=== PATIENT | female | born 1990 | race Caucasian/White ===

== ENCOUNTER 2021-07-09 00:48 | Emergency (ER) | payer SELFPAY ==
[2021-07-09 01:23] LABS: Urine Blood Trace-intact (Negative); Urine Glucose Negative (Negative); Urine Protein Negative (Negative); Urine pH 6.5 (5.0-7.0)
[2021-07-09] MEDS ORDERED: NA CHLORIDE 0.9% 1,000 ML ONE (01:30)
[2021-07-09 01:43] LABS: Absolute Lymphocytes (CBC) 2.5 K/uL (0.7-4.9); Hematocrit 38.2 % (36.0-45.0); Lymphocytes % 32.9 % (15.3-44.8); MPV 7.5 fL (7.6-11.3); RBC Red Blood Cell Count 4.37 M/uL (3.86-4.86)
[2021-07-09 01:54] LABS: Albumin 3.3 g/dL (3.4-5.0); Bilirubin Total 0.2 mg/dL (0.2-1.0); Potassium 3.9 mmol/L (3.5-5.1); Protein, Total 6.9 g/dL (6.4-8.2)
--- NOTE | 2021-07-09 03:17 | EDPHYS ---
Physician Documentation [facility] Margie Name: Anu Quiroz Age: 30 yrs Sex: Female : 1990 Arrival Date: 07/09/2021 Time: 00:51 Bed 5 Private MD: ED Physician Drew Austin HPI: 07/09 03:07 This 30 yrs old Female presents to ER via Ambulatory with complaints of Abdominal Pain. rn 03:07 The patient presents with abdominal pain in the lower abdomen. Onset: The rn symptoms/episode began/occurred 1 week(s) ago. The symptoms do not radiate. Associated signs and symptoms: Pertinent positives: dysuria, Pertinent negatives: blood in stools, constipation, diarrhea, fever, vaginal discharge. The symptoms are described as achy, intermittent. Modifying factors: The symptoms are alleviated by nothing, the symptoms are aggravated by nothing. Severity of pain: At its worst the pain was moderate in the emergency department the pain has improved. The patient has not experienced similar symptoms in the past. The patient has not recently seen a physician. Pt reports lower abd pain, bilateral lower quadrants for 1 week, no fever/vomiting/diarrhea. No blood in stool. Does reports increased urinary frequency and urgency. Started taking AZO. No trauma. . 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 - Family history:: not pertinent. - Hospitalizations: : No recent hospitalization is reported. ROS: 03:07 Constitutional: Negative for fever, chills, and weight loss, Eyes: Negative for injury, rn pain, redness, and discharge, Neck: Negative for injury, pain, and swelling, Cardiovascular: Negative for chest pain, palpitations, and edema, Respiratory: Negative for shortness of breath, cough, wheezing, and pleuritic chest pain, Abdomen/GI: + lower abd pain Back: Negative for injury and pain, : + dysuria and increased frequency of urination MS/Extremity: Negative for injury and deformity, Skin: Negative for injury, rash, and discoloration, Neuro: Negative for headache, weakness, numbness, tingling, and seizure. Exam: 03:07 Constitutional: This is a well developed, well nourished patient who is awake, alert, rn and in no acute distress. Head/Face: Normocephalic, atraumatic. Cardiovascular: Regular rate and rhythm Respiratory: No increased work of breathing, no retractions or nasal flaring. Abdomen/GI: soft, mild RLQ tenderness, no rebound, no masses Back: No spinal tenderness. No costovertebral tenderness. Full range of motion. Skin: Warm, dry MS/ Extremity: Pulses equal, no cyanosis. Neuro: Awake and alert, GCS 15 Vital Signs: 01:09 BP 128 / 79; Pulse 105; Resp 18; Temp 97.8(O); Pulse Ox 100% on R/A; Weight 68.04 kg lp1 (R); Height 5 ft. 3 in. (160.02 cm); Pain 5/10; 02:35 BP 121 / 78; Pulse 86; Resp 16 S; Pulse Ox 100% on R/A; Pain 5/10; al4 01:09 Body Mass Index 26.57 (68.04 kg, 160.02 cm) lp1 MDM: 00:53 Patient medically screened. rn 03:07 Differential diagnosis: appendicitis, diverticulitis, Endometriosis, non-specific abd rn pain, Ureterolithiasis, urinary tract infection, ovarian cyst. Data reviewed: vital signs, nurses notes, lab test result(s), radiologic studies, CT scan, and as a result, I will discharge patient. Counseling: I had a detailed discussion with the patient and/or guardian regarding: the historical points, exam findings, and any diagnostic results supporting the discharge/admit diagnosis, lab results, radiology results, the need for outpatient follow up, to return to the emergency department if symptoms worsen or persist or if there are any questions or concerns that arise at home. Response to treatment: the patient's symptoms have mildly improved after treatment, and as a result, I will discharge patient. Special discussion: Based on the patient's Hx, exam, and Dx evaluation, there is no indication for emergent surgery or inpatient Tx. It is understood by the patient/guardian that if the Sx's persist or worsen they need to return immediately for re-evaluation. I discussed with the patient/guardian in detail that at this point there is no indication for admission to the hospital. It is understood, however, that if the symptoms persist or worsen the patient needs to return immediately for re-evaluation. ED course: Ct without acute findings. 1+ leukocyte in urine and patient with urinary complaints, will dc home with abx and return precautions. . 07/09 01:09 Order name: CBC with Diff; Complete Time: 03:07 rn 07/09 01:09 Order name: CMP; Complete Time: 03: rn 07/09 01:09 Order name: Lipase; Complete Time: 03: rn 07/09 01:23 Order name: Urine Dipstick-Ancillary; Complete Time: 03:07 ED[facility] 07/09 01:44 Order name: Urine --Ancillary (enter results) 07/09 01:45 Order name: Urine --Ancillary; Complete Time: 03:07 EDNH 07/09 01:09 Order name: CT Abd/Pelvis - IV Contrast Only rn 07/09 01:09 Order name: IV Saline Lock; Complete Time: : rn 07/09 01:09 Order name: Labs collected and sent; Complete Time: rn 07/09 01:09 Order name: Urine Dipstick-Ancillary (obtain specimen); Complete Time: 01: rn 07/09 01:09 Order name: Urine Test (obtain specimen); Complete Time: 01:29 rn Administered Medications: 01:29 Drug: NS 0.9% 1000 ml Route: IV; Rate: 1 bolus; Site: right antecubital; ll3 03:28 Follow up: Response: No adverse reaction; IV Status: Completed infusion; IV Intake: ll3 1000ml 03:27 Drug: Cipro (ciprofloxacin) 500 mg Route: PO; ll3 03:28 Follow up: Response: Medication administered at discharge. ll3 Disposition Summary: 07/09/21 03:17 Discharge Ordered Location: Home rn Problem: new rn Symptoms: have improved rn Condition: Stable rn Diagnosis - Abdominal pain, unspecified rn - Other ovarian cysts rn - UTI/ Urinary tract infection, site not specified rn Followup: rn - With: Private Physician - When: As needed - Reason: Recheck today's complaints, Re-evaluation by your physician Discharge Instructions: - Discharge Summary Sheet rn - Abdominal Pain, Adult rn - Ovarian Cyst rn - Urinary Tract Infection, Adult rn Forms: - Medication Reconciliation Form rn - Thank You Letter rn - Antibiotic stock turner - Prescription Opioid Use rn Prescriptions: - Pyridium 200 mg Oral Tablet - take 1 tablet by ORAL route every 8 hours for 3 days; 9 tablet; Refills: 0, rn Product Selection Permitted - Cipro 500 mg Oral Tablet - take 1 tablet by ORAL route every 12 hours for 7 days; 14 tablet; Refills: 0, rn Product Selection Permitted Signatures: Dispatcher [employer] EDDrew Coffman MD MD rn Pena, Laura, RN RN lp1 Bipin Grayson RN RN ll3
--- NOTE | 2021-07-09 03:17 | ER ---
Nurse's Notes [facility] Margie Name: Anu Quiroz Age: 30 yrs Sex: Female : 1990 Arrival Date: 07/09/2021 Time: 00:51 Bed 5 Private MD: Diagnosis: Abdominal pain, unspecified;Other ovarian cysts;UTI/ Urinary tract infection, site not specified Presentation: 07/09 01:09 Chief complaint: Patient states: RLQ and LLQ abdominal pain radiating to low back that lp1 began about 1 week ago, pain has become more severe, reports urinary frequency, burning with urination, feeling on incomplete emptying; Has been taking AZO without relief. Coronavirus screen: At this time, the client does not indicate any symptoms associated with coronavirus-19. Ebola Screen: No symptoms or risks identified at this time. Initial Sepsis Screen: Does the patient meet any 2 criteria? No. Patient's initial sepsis screen is negative. Does the patient have a suspected source of infection? No. Patient's initial sepsis screen is negative. Risk Assessment: Do you want to hurt yourself or someone else? Patient reports no desire to harm self or others. Onset of symptoms was July 09, 2021. 01:09 Method Of Arrival: Ambulatory lp1 01:09 Acuity: ALLISON 3 lp1 Triage Assessment: 01:35 General: Appears uncomfortable, Behavior is calm, cooperative. Pain: Complains of pain ll3 in groin Quality of pain is described as burning, Pain began 2-3 days ago. GI: Abdomen is round non-distended, Reports lower abdominal pain. : Reports burning with urination, pain in suprapubic area urgency, urinary frequency. 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 - Family history:: not pertinent. - Hospitalizations: : No recent hospitalization is reported. Screenin:36 Abuse screen: Denies threats or abuse. Nutritional screening: No deficits noted. ll3 Tuberculosis screening: No symptoms or risk factors identified. Fall Risk No fall in past 12 months (0 pts). No secondary diagnosis (0 pts). IV access (20 points). Ambulatory Aid- None/Bed Rest/Nurse Assist (0 pts). Gait- Normal/Bed Rest/Wheelchair (0 pts) Mental Status- Oriented to own ability (0 pts). Total Wood Fall Scale indicates No Risk (0-24 pts). Assessment: 01:36 General: See triage assessment. ll3 01:37 GI: Bowel sounds present X 4 quads. Abd is soft and non tender X 4 quads. ll3 02:34 Reassessment: RN agrees with triage assessment. patient awake and alert. patient al4 playing on cell phone and in no apparent distress. patient rates pain 5/10, but states she does not want/need anything at this time. . Vital Signs: 01:09 BP 128 / 79; Pulse 105; Resp 18; Temp 97.8(O); Pulse Ox 100% on R/A; Weight 68.04 kg lp1 (R); Height 5 ft. 3 in. (160.02 cm); Pain 5/10; 02:35 BP 121 / 78; Pulse 86; Resp 16 S; Pulse Ox 100% on R/A; Pain 5/10; al4 01:09 Body Mass Index 26.57 (68.04 kg, 160.02 cm) lp1 ED Course: 00:51 Patient arrived in ED. bp1 00:53 Drew Austin MD is Attending Physician. rn 01:09 Arm band placed on. lp1 01:11 Triage completed. lp1 01:26 Inserted saline lock: 22 gauge in right antecubital area, using aseptic technique. ds4 Blood collected. 01:36 Patient has correct armband on for positive identification. Bed in low position. Call ll3 light in reach. Side rails up X 1. Adult w/ patient. 01:36 No provider procedures requiring assistance completed. ll3 02:26 CT Abd/Pelvis - IV Contrast Only In Process Unspecified. EDMS 02:29 Toni Almeida is Primary Nurse. al4 03:28 IV discontinued, intact, bleeding controlled, No redness/swelling at site. Pressure ll3 dressing applied. Administered Medications: 01:29 Drug: NS 0.9% 1000 ml Route: IV; Rate: 1 bolus; Site: right antecubital; ll3 03:28 Follow up: Response: No adverse reaction; IV Status: Completed infusion; IV Intake: ll3 1000ml 03:27 Drug: Cipro (ciprofloxacin) 500 mg Route: PO; 3 03:28 Follow up: Response: Medication administered at discharge. 3 Intake: 03:28 IV: 1000ml; Total: 1000ml. 3 Outcome: 03:17 Discharge ordered by . rn 03:28 Discharged to home ambulatory, with significant other. 3 03:28 Condition: stable 03:28 Discharge instructions given to patient, family, Instructed on discharge instructions, follow up and referral plans. medication usage, Demonstrated understanding of instructions, follow-up care, medications, Prescriptions given X 2. 03:28 Patient left the ED. 3 Signatures: Dispatcher [employer] EDMS Drew Austin MD MD rn Pena, Laura RN RN lp1 Giuseppe Lemon ds4 Ginger Yancey Lynsea RN RN ll3 Toni Almeida al4 Corrections: (The following items were deleted from the chart) 02:38 02:34 Reassessment: patient awake and alert. patient playing on cell phone and in no al4 apparent distress. patient rates pain 5/10, but states she does not want/need anything at this time. . al4
[2021-07-09] MEDS ORDERED: CIPROFLOXACIN HCL 500 MG TAB ONE (03:28)
[2021-07-09 05:50] VITALS: TEMP 97.8; O2SAT 100
[2021-07-09 05:52] VITALS: BP 121/78
--- NOTE | 2021-07-09 11:09 | RAD REPORT ---
EXAM DESCRIPTION: Abdomen Pelvis W Contrast 07/09/2021 2:42 AM CDT CLINICAL HISTORY: 30 years, Female, Abdominal pain, acute, nonlocalized COMPARISON: None TECHNIQUE: Contrast-enhanced images of the abdomen and pelvis were performed utilizing 5 mm slice th ickness at 5 mm interval reconstruction from the lung bases to the ischial tuberosities after the adm inistration of IV contrast. In addition multiplanar reformats in the coronal and sagittal plane were obtained and reviewed. This exam was performed according to our departmental dose-optimization protocol, which includes auto mated exposure control, adjustment of the mA and/or kV according to patient size and/or use of iterat alejo reconstruction technique. FINDINGS: The lung bases demonstrate to be clear. The liver, gallbladder, pancreas, spleen and adrenal glands demonstrate to be unremarkable, no focal lesions are noted. The kidneys demonstrate normal uptake of contrast media. No evidence for nephrolithiasis and/or hydro nephrosis. Grossly the unopacified stomach, small bowel and large bowel demonstrate to be within normal limits. There is no evidence for bowel dilatation/or free air. The appendix is normal. The urinary bladder demonstrate to be unremarkable. The uterus is unremarkable. There is a right ad nexal cystic structure with a rim wall enhancement measuring 1.4 x 2 1.1 cm corresponding to a corpus luteum cyst. The aorta demonstrate to be normal. There is no retroperitoneal lymphadenopathy. Th ere is no evidence for ascites/or significant abnormal fluid collections. The rest of the soft tissue and bony structures are within normal limits. IMPRESSION: No acute intra-abdominal process. 1.1 cm right adnexal corpus luteum. No follow-up imaging is recommended. Electronically signed by: Elmo Gutierrez MD 07/09/2021 2:44 AM CDT Due to temporary technical issues with the PACS/Fluency reporting system, reports are being signed by the in house radiologist without review as a courtesy to ensure prompt reporting. The interpreting r adiologist is fully responsible for the content of the report.
== END 2021-07-09 03:28 | disposition home or self-care (01) ==
LOC: ER 00:48
DX: N39.0 Urinary tract infection, site not specified (principal); N83.299 Other ovarian cyst, unspecified side
CPT/HCPCS: 36415; 74177; 80053; 81003; 81025; 83690; 85025; J7030; Q9967

== ENCOUNTER 2021-07-29 23:14 | Emergency (ER) | payer SELFPAY ==
[2021-07-30] MEDS ORDERED: NA CHLORIDE 0.9% 1,000 ML ONE (01:25)
[2021-07-30] MEDS ORDERED: PANTOPRAZOLE 40 MG INJ ONE (01:26)
[2021-07-30 01:55] LABS: Urine Blood Negative (Negative); Urine Glucose Negative (Negative); Urine Protein Negative (Negative)
[2021-07-30 02:04] LABS: Absolute Lymphocytes (CBC) 2.5 K/uL (0.7-4.9); Hematocrit 39.4 % (36.0-45.0); Lymphocytes % 35.5 % (15.3-44.8); MPV 7.8 fL (7.6-11.3); RBC Red Blood Cell Count 4.49 M/uL (3.86-4.86)
[2021-07-30 02:06] LABS: Protime INR 1.05
[2021-07-30 02:15] LABS: Albumin 3.9 g/dL (3.4-5.0); Bilirubin Total 0.3 mg/dL (0.2-1.0); Potassium 3.2 mmol/L (3.5-5.1); Protein, Total 7.8 g/dL (6.4-8.2)
--- NOTE | 2021-07-30 05:34 | EDPHYS ---
Physician Documentation [facility] Margie Name: Anu Quiroz Age: 30 yrs Sex: Female : 1990 Arrival Date: 07/29/2021 Time: 23:17 Bed 19 Private MD: ED Physician Logan Duque HPI: 07/30 00:55 This 30 yrs old Female presents to ER via Ambulatory with complaints of GI Bleeding. mh7 00:55 The patient presents to the emergency department with rectal bleeding, a moderate mh7 amount, bright red blood with bowel movement, on toilet paper, 2 times since symptom onset. 00:55 Onset: The symptoms/episode began/occurred 2 day(s) ago. mh7 00:55 Abdominal pain: none is appreciated. Modifying factors: The symptoms are alleviated by mh7 nothing, the symptoms are aggravated by nothing. Associated signs and symptoms: Pertinent negatives: anorexia, chest pain, constipation, diarrhea, dizziness at rest, dizziness when standing, fever, shortness of breath, syncope, near-syncope, vomiting. Severity of symptoms: At their worst the symptoms were moderate yesterday, in the emergency department the symptoms have improved moderately. 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 Flu vaccine is not up to date. Patient has never been vaccinated. - Social history:: Smoking status: Patient reports the use of cigarette tobacco products, smokes 0.25 packs per day, Patient uses street drugs, Methamphetamine (Meth). ROS: 00:55 Constitutional: Negative for fever, chills, and weight loss, Eyes: Negative for injury, mh7 pain, redness, and discharge, ENT: Negative for injury, pain, and discharge, Neck: Negative for injury, pain, and swelling, Cardiovascular: Negative for chest pain, palpitations, and edema, Respiratory: Negative for shortness of breath, cough, wheezing, and pleuritic chest pain, Back: Negative for injury and pain, : Negative for injury, bleeding, discharge, and swelling, MS/Extremity: Negative for injury and deformity, Skin: Negative for injury, rash, and discoloration, Neuro: Negative for headache, weakness, numbness, tingling, and seizure, Psych: Negative for depression, anxiety, suicide ideation, homicidal ideation, and hallucinations, Allergy/Immunology: Negative for hives, rash, and allergies, Endocrine: Negative for neck swelling, polydipsia, polyuria, polyphagia, and marked weight changes, Hematologic/Lymphatic: Negative for swollen nodes, abnormal bleeding, and unusual bruising. Exam: 00:55 Constitutional: This is a well developed, well nourished patient who is awake, alert, mh7 and in no acute distress. Head/Face: Normocephalic, atraumatic. Eyes: Pupils equal round and reactive to light, extra-ocular motions intact. Lids and lashes normal. Conjunctiva and sclera are non-icteric and not injected. Cornea within normal limits. Periorbital areas with no swelling, redness, or edema. Neck: Trachea midline, no thyromegaly or masses palpated, and no cervical lymphadenopathy. Supple, full range of motion without nuchal rigidity, or vertebral point tenderness. No Meningismus. Chest/axilla: Normal chest wall appearance and motion. Nontender with no deformity. No lesions are appreciated. Cardiovascular: Regular rate and rhythm with a normal S1 and S2. No gallops, murmurs, or rubs. Normal PMI, no JVD. No pulse deficits. Respiratory: Lungs have equal breath sounds bilaterally, clear to auscultation and percussion. No rales, rhonchi or wheezes noted. No increased work of breathing, no retractions or nasal flaring. Abdomen/GI: Soft, non-tender, with normal bowel sounds. No distension or tympany. No guarding or rebound. No evidence of tenderness throughout. Back: No spinal tenderness. No costovertebral tenderness. Full range of motion. Skin: Warm, dry with normal turgor. Normal color with no rashes, no lesions, and no evidence of cellulitis. MS/ Extremity: Pulses equal, no cyanosis. Neurovascular intact. Full, normal range of motion. Neuro: Awake and alert, GCS 15, oriented to person, place, time, and situation. Cranial nerves II-XII grossly intact. Motor strength 5/5 in all extremities. Sensory grossly intact. Cerebellar exam normal. Normal gait. Psych: Awake, alert, with orientation to person, place and time. Behavior, mood, and affect are within normal limits. 07:12 Abdomen/GI: Rectal exam: rectal tone normal, Stool: guaiac positive, raffy, [facility] hemorrhoid(s), are not appreciated, mass, is not appreciated, swelling, is not appreciated, tenderness, is not appreciated, fecal impaction, is not appreciated, the exam is chaperoned by the nurse. Vital Signs: 07/29 23:58 BP 145 / 99; Pulse 93; Resp 18; Temp 98.2(O); Pulse Ox 100% on R/A; Weight 68.04 kg; 7 Height 5 ft. 3 in. (160.02 cm); Pain 0/10; 07/30 00:00 BP 150 / 139; Pulse 77; Resp 18 S; Pulse Ox 100% on R/A; Pain 0/10; ag7 00:15 BP 136 / 76; Pulse 75; Pulse Ox 100% ; Pain 0/10; 7 07/29 23:58 Body Mass Index 26.57 (68.04 kg, 160.02 cm) [facility] MDM: 05:31 Differential diagnosis: gastritis, diverticulitis, hemorrhoids, Colitis. Data reviewed: [facility] vital signs, nurses notes, lab test result(s), CBC, electrolytes, urinalysis, radiologic studies, CT scan. Data interpreted: Pulse oximetry: on room air is 100 %. Interpretation: normal. 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 Response to treatment: the patient's symptoms have resolved after treatment, the patient's blood pressure is in an acceptable range, mental status has returned to baseline, the patient no longer shows bradycardia, the patient is not short of breath, the patient is not tachycardic, the patient's pain is gone, the patient's temperature has normalized. 05:[address] [facility] 07/30 01:02 Order name: CBC with Diff; Complete Time: 02:21 [facility] 07/30 01:02 Order name: CMP; Complete Time: 02:21 7 07/30 01:02 Order name: Lipase; Complete Time: 02:21 [facility] 07/30 01:02 Order name: Type And Screen; Complete Time: 04:47 7 07/30 01:02 Order name: Protime (+inr); Complete Time: 02:21 [facility] 07/30 01:02 Order name: Ptt, Activated; Complete Time: 02:21 [facility] 07/30 01:03 Order name: COVID-19 SARS RT PCR (Document "Date of Onset" if Symptomatic); Complete [facility] Time: 03:08 07/30 01:07 Order name: CT Abd/Pelvis - Without Contrast [facility] 07/30 01:55 Order name: Urine Dipstick-Ancillary; Complete Time: 02:21 [facility] 07/30 01:57 Order name: Urine Dipstick-Ancillary [facility] 07/30 01:57 Order name: Urine --Ancillary (enter results); Complete Time: 03:08 [facility] 07/30 01:02 Order name: IV Saline Lock; Complete Time: 01:49 [facility] 07/30 01:02 Order name: Labs collected and sent; Complete Time: 01:49 [facility] 07/30 01:02 Order name: Urine Dipstick-Ancillary (obtain specimen); Complete Time: 01:49 [facility] 07/30 01:02 Order name: Urine Test (obtain specimen); Complete Time: 02:03 [facility] Administered Medications: 01:07 CANCELLED (wrong orderr): Zofran (Ondansetron) 4 mg IVP once; over [address] [facility] 01:48 Drug: ProTONIX (pantoprazole) 80 mg Route: IVP; Site: right antecubital; 7 02:30 Follow up: Response: No adverse reaction [facility] 01:49 Drug: NS 0.9% 1000 ml Route: IV; Rate: 1 bolus; Site: right antecubital; ag7 03:23 Follow up: IV Status: Completed infusion; IV Intake: 1000ml [facility] Disposition Summary: 07/30/21 05:33 Discharge Ordered Location: Home [facility] Problem: new [facility] Symptoms: have improved [facility] Condition: Stable [facility] Diagnosis - Rectal Bleeding [facility] Followup: [facility] - With: Private Physician - When: 1 - 2 days - Reason: Worsening of condition, Recheck today's complaints, Continuance of care, Re-evaluation by your physician Followup: [facility] - With: Norm Juan MD - When: 1 - 2 days - Reason: Worsening of condition, Recheck today's complaints Discharge Instructions: - Discharge Summary Sheet [facility] - Rectal Bleeding, [id number] [facility] Forms: - Medication Reconciliation Form [facility] - Thank You Letter [facility] - Antibiotic Education [facility] - Prescription Opioid Use [facility] Prescriptions: - Protonix 40 mg Oral tablet,delayed release (DR/EC) - take 1 tablet by ORAL route once daily; 15 tablet; Refills: 0, Product [facility] Selection Permitted Signatures: Dispatcher [employer] Logan Drew MD MD [facility] Elena Og RN RN 7 Corrections: (The following items were deleted from the chart) 01:07 01:02 Zofran (Ondansetron) 4 mg IVP once; over 2 minutes ordered. [place] [id number]
--- NOTE | 2021-07-30 05:34 | ER ---
Nurse's Notes [facility] Margie Name: Anu Quiroz Age: 30 yrs Sex: Female : 1990 Arrival Date: 07/29/2021 Time: 23:17 Bed 19 Private MD: Diagnosis: Rectal Bleeding Presentation: 07/29 23:58 Chief complaint: Patient states: Patient state," I am having rectal bleeding that ag7 started yesterday, bright red in color". Coronavirus screen: Client denies travel out of the [place] in the last 14 days. At this time, the client does not indicate any symptoms associated with coronavirus-19. Ebola Screen: Patient negative for fever greater than or equal to 101.5 degrees Fahrenheit, and additional compatible Ebola Virus Disease symptoms Patient denies exposure to infectious person. Patient denies travel to an Ebola-affected area in the 21 days before illness onset. Initial Sepsis Screen: Does the patient meet any 2 criteria? No. Patient's initial sepsis screen is negative. Does the patient have a suspected source of infection? No. Patient's initial sepsis screen is negative. Risk Assessment: Do you want to hurt yourself or someone else? Patient reports no desire to harm self or others. Onset of symptoms was July 29, 2021. 23:58 Method Of Arrival: Ambulatory [facility] 23:58 Acuity: ALLISON 3 ag7 FIELD REPORTER: 07/30 00:07 LMP 07/12/2021 ag7 Historical: - Home Meds: 00:00 None [Active]; ag7 - PMHx: 00:00 eczema; ag7 - PSHx: 00:00 section; ag7 - Immunization history:: Adult Immunizations up to date, Client reports having NOT received the Covid vaccine. Flu vaccine is not up to date. Patient has never been vaccinated. - Social history:: Smoking status: Patient reports the use of cigarette tobacco products, smokes 0.25 packs per day, Patient uses street drugs, Methamphetamine (Meth). Screenin:06 Abuse screen: Denies threats or abuse. Nutritional screening: No deficits noted. ag7 Tuberculosis screening: No symptoms or risk factors identified. Fall Risk No fall in past 12 months (0 pts). No secondary diagnosis (0 pts). No IV (0 pts). Ambulatory Aid- None/Bed Rest/Nurse Assist (0 pts). Gait- Normal/Bed Rest/Wheelchair (0 pts) Mental Status- Oriented to own ability (0 pts). Total Wood Fall Scale indicates No Risk (0-24 pts). Assessment: 00:02 General: Appears in no apparent distress. Behavior is calm, cooperative, appropriate ag7 for age, Smells of cigarettes. Pain: Denies pain. Neuro: Level of Consciousness is awake, alert, obeys commands, Oriented to person, place, time, situation, Appropriate for age Welt Rougher are equal bilaterally Moves all extremities. Cardiovascular: Heart tones S1 S2 present Capillary refill is brisk in bilateral fingers Patient's skin is warm and dry. Respiratory: Airway is patent Trachea midline Respiratory effort is even, unlabored, Respiratory pattern is regular, symmetrical, Breath sounds are clear bilaterally. GI: Abdomen is non-distended, Bowel sounds present X 4 quads. Abd is soft and non tender X 4 quads. Reports bloody stool. : Reports hesitancy. 00:57 Reassessment: No changes from previously documented assessment. ag7 02:00 Reassessment: Patient and/or family updated on plan of care and expected duration. Pain ag7 level reassessed. Patient is alert, oriented x 3, equal unlabored respirations, skin warm/dry/pink. Patient denies pain at this time. 03:14 Reassessment: No changes from previously documented assessment. ag7 04:30 Reassessment: Patient and/or family updated on plan of care and expected duration. Pain ag7 level reassessed. Patient is alert, oriented x 3, equal unlabored respirations, skin warm/dry/pink. Patient denies pain at this time. 05:29 Reassessment: No changes from previously documented assessment. Patient and/or family ag7 updated on plan of care and expected duration. Pain level reassessed. Patient is alert, oriented x 3, equal unlabored respirations, skin warm/dry/pink. Patient states feeling better. Patient states symptoms have improved. Vital Signs: 07/29 23:58 BP 145 / 99; Pulse 93; Resp 18; Temp 98.2(O); Pulse Ox 100% on R/A; Weight 68.04 kg; ag7 Height 5 ft. 3 in. (160.02 cm); Pain 0/10; 07/30 00:00 BP 150 / 139; Pulse 77; Resp 18 S; Pulse Ox 100% on R/A; Pain 0/10; ag7 00:15 BP 136 / 76; Pulse 75; Pulse Ox 100% ; Pain 0/10; ag7 07/29 23:58 Body Mass Index 26.57 (68.04 kg, 160.02 cm) ag7 ED Course: 07/29 23:17 Patient arrived in ED. ja2 23:48 Elena Og, RN is Primary Nurse. ag7 07/30 00:00 Triage completed. ag7 00:06 Patient has correct armband on for positive identification. Placed in gown. Bed in low ag7 position. Call light in reach. Side rails up X 1. Adult w/ patient. 00:06 No provider procedures requiring assistance completed. ag7 00:25 Logan Duque MD is Attending Physician. mh7 01:48 COVID-19 SARS RT PCR (Document "Date of Onset" if Symptomatic) Sent. ag7 01:49 Inserted saline lock: 20 gauge in right antecubital area, using aseptic technique. ag7 Blood collected. 02:03 Urine Dipstick-Ancillary Sent. ag7 02:03 Urine --Ancillary (enter results) Sent. ag7 02:03 COVID-19 SARS RT PCR (Document "Date of Onset" if Symptomatic) Sent. ag7 02:21 CT Abd/Pelvis - Without Contrast In Process Unspecified. EDMS 05:33 Norm Juan MD is Referral Physician. mh7 05:53 IV discontinued, intact, bleeding controlled, No redness/swelling at site. Pressure ag7 dressing applied. Administered Medications: 01:07 CANCELLED (wrong orderr): Zofran (Ondansetron) 4 mg IVP once; over 2 minutes mh7 01:48 Drug: ProTONIX (pantoprazole) 80 mg Route: IVP; Site: right antecubital; ag7 02:30 Follow up: Response: No adverse reaction ag7 01:49 Drug: NS 0.9% 1000 ml Route: IV; Rate: 1 bolus; Site: right antecubital; ag7 03:23 Follow up: IV Status: Completed infusion; IV Intake: 1000ml ag7 Medication: 00:07 VIS not applicable for this client. ag7 Intake: 03:23 IV: 1000ml; Total: 1000ml. ag7 Outcome: 05:33 Discharge ordered by . Tom 05:53 Discharged to home ambulatory. [facility] 05:53 Condition: stable 05:53 Discharge instructions given to patient, Instructed on discharge instructions, follow up and referral plans. medication usage, Demonstrated understanding of instructions, follow-up care, medications, Prescriptions given X 1. 05:54 Patient left the ED. 7 Signatures: Dispatcher [employer] EDLogan Christy MD MD [facility] Pearl Atkins Angela, RN RN 7
[2021-07-30 06:08] VITALS: TEMP 98.2; O2SAT 100
[2021-07-30 06:11] VITALS: BP 136/76
--- NOTE | 2021-07-30 18:55 | RAD REPORT ---
EXAM DESCRIPTION: Abdomen Pelvis W Contrast 07/09/2021 2:42 AM CDT CLINICAL HISTORY: 30 years, Female, Abdominal pain, acute, nonlocalized COMPARISON: None TECHNIQUE: Contrast-enhanced images of the abdomen and pelvis were performed utilizing 5 mm slice th ickness at 5 mm interval reconstruction from the lung bases to the ischial tuberosities after the adm inistration of IV contrast. In addition multiplanar reformats in the coronal and sagittal plane were obtained and reviewed. This exam was performed according to our departmental dose-optimization protocol, which includes auto mated exposure control, adjustment of the mA and/or kV according to patient size and/or use of iterat alejo reconstruction technique. FINDINGS: The lung bases demonstrate to be clear. The liver, gallbladder, pancreas, spleen and adrenal glands demonstrate to be unremarkable, no focal lesions are noted. The kidneys demonstrate normal uptake of contrast media. No evidence for nephrolithiasis and/or hydro nephrosis. Grossly the unopacified stomach, small bowel and large bowel demonstrate to be within normal limits. There is no evidence for bowel dilatation/or free air. The appendix is normal. The urinary bladder demonstrate to be unremarkable. The uterus is unremarkable. There is a right ad nexal cystic structure with a rim wall enhancement measuring 1.4 x 2 1.1 cm corresponding to a corpus luteum cyst. The aorta demonstrate to be normal. There is no retroperitoneal lymphadenopathy. Th ere is no evidence for ascites/or significant abnormal fluid collections. The rest of the soft tissue and bony structures are within normal limits. IMPRESSION: No acute intra-abdominal process. 1.1 cm right adnexal corpus luteum. No follow-up imaging is recommended. Electronically signed by: Elmo Gutierrez MD 07/09/2021 2:44 AM CDT Due to temporary technical issues with the PACS/Fluency reporting system, reports are being signed by the in house radiologists without review as a courtesy to insure prompt reporting. The interpreting radiologist is fully responsible for the content of the report.
== END 2021-07-30 05:54 | disposition home or self-care (01) ==
LOC: ER 23:14
DX: K62.5 Hemorrhage of anus and rectum (principal); F17.210 Nicotine dependence, cigarettes, uncomplicated
CPT/HCPCS: 36415; 74176; 80053; 81003; 81025; 83690; 85025; 85610; 85730; 86850; 86900; 86901; 96361; 96374; 99284; C9113; J7030; U0003